=== PATIENT | female | born 1960 | race American Indian/Alaskan Native ===

== ENCOUNTER 2021-03-29 10:53 | Outpatient (CLI) | payer BC ==
--- NOTE | 2021-04-02 09:30 | Mammography Report ---
DIGITAL DIAGNOSTIC MAMMOGRAM WITH CAD, 03/29/2021 INDICATION: The patient reports generalized swelling of the left breast for 8 months. TECHNIQUE: Digital left mammographic imaging was performed. Magnification views were obtained. This examination was interpreted with the benefit of Computer-aided Detection analysis. COMPARISON: 07/26/2019, 06/21/2018 FINDINGS: Breast Density: The breasts are heterogeneously dense, which may obscure small masses. There has been interval development of a 1 cm cluster of coarse heterogeneous calcifications with a s lightly branching morphology at the immediate retroareolar position. There is no focal mammographic abnormality to account for the patient's report of left breast swellin g. IMPRESSION: Follow up recommendation: Biopsy BI-RADS Category 4: Suspicious for Malignancy. 1. New cluster of heterogeneous slightly branching calcifications in the immediate retroareolar posit ion. There is immediate location adjacent to the nipple would preclude percutaneous biopsy. Needle lo calization and surgical biopsy would likely be the best option. 2. No mammographic abnormality to account for the patient's report of left breast swelling. Therefore , clinical correlation is recommended. A "normal" or negative report should not discourage follow up or biopsy of a clinically significant f inding. A written summary of these findings will be mailed to the patient. The patient will be entered into a mammography reporting system which will generate a reminder letter for the patient's next appointmen t at the appropriate interval. According to the [employer], yearly mammograms are recommended starting at age 40 and continuing as long as a woman is in good health. Breast MRI is recommended for women with an tawanda roximately 20-25% or greater lifetime risk of breast cancer, including women with a strong family his tory of breast or ovarian cancer and women who have been treated for Hodgkin's disease. Signer Name: Crystal Abdul MD Signed: 04/02/2021 9:26 AM Workstation Name: [id number]
== END 2021-03-29 10:54 | disposition home or self-care (01) ==
LOC: SPVWC 10:53
PROVIDERS: ATTEND Surgery
DX: R92.0 Mammographic microcalcification found on diagnostic imaging of breast (principal)
CPT/HCPCS: 77065; G0279

== ENCOUNTER 2021-04-29 05:53 | Day surgery (SDC) | payer BC ==
[2021-04-23 11:07] LABS: Hemoglobin 14.1 gm/dl (10.1-14.3); Mean Corpuscular HGB Conc 34 % (30-34); Mean Corpuscular Volume 92 fl (79-97); Platelet Count 316 K/mm3 (140-440); Red Blood Count 4.57 M/mm3 (3.65-5.03); Red Cell Distribution Width 13.2 % (13.2-15.2)
[2021-04-29] MEDS ORDERED: ceFAZolin/STERILE WATER 2 GM/20 ML SYRINGE IV NR (06:00)
--- NOTE | 2021-04-29 06:55 | Anesthesia Consultation ---
Anesthesia Consult and Med Hx Date of service: 04/29/21 - Airway Anesthetic Teeth Evaluation: Good ROM Head & Neck: Adequate Mental/Hyoid Distance: Adequate Mallampati Class: Class II Intubation Access Assessment: Good - Pulmonary Exam CTA: Yes - Cardiac Exam Cardiac Exam: RRR - Pre-Operative Health Status ASA Pre-Surgery Classification: ASA2 Proposed Anesthetic Plan: General - Pulmonary Hx Smoking: No Hx Sleep Apnea: No - Cardiovascular System Hx Hypertension: Yes - Central Nervous System Hx Psychiatric Problems: Yes - Other Systems Hx Alcohol Use: Yes (OCCASIONALLY) Hx Substance Use: No Hx Cancer: No
--- NOTE | 2021-04-29 06:56 | Anesthesia Day of Surgery ---
Anesthesia Day of Surgery - Day of Surgery Patient Examined: Yes Patient H&P Reviewed: Yes Patient is NPO: Yes
[2021-04-29] MEDS ORDERED: SCOPOLAMINE TRANSDERMAL PATCH 72 HR TD NR (07:00)
[2021-04-29] MEDS ORDERED: LACTATED RINGERS 1,000 ML IV SCH (07:00)
[2021-04-29] MEDS ORDERED: MIDAZOLAM 2 MG/2 ML INJ IV NR (07:00)
[2021-04-29] MEDS ORDERED: BUPIVACAINE/PF (0.5%) 5 MG/1 ML 30 ML VIAL INFILTRATI ONE (07:21)
[2021-04-29] MEDS ORDERED: LIDOCAINE (1%) 10 MG/1 ML VIAL 20 ML MDV ONE ×2 (07:21→07:44)
[2021-04-29] MEDS ORDERED: ONDANSETRON 4 MG/2 ML INJ ONE (07:41)
[2021-04-29] MEDS ORDERED: fentaNYL 100 MCG/2 ML INJ ONE (07:41)
[2021-04-29] MEDS ORDERED: propofoL 200 MG/20 ML VIAL IV ONE (07:42)
[2021-04-29] MEDS ORDERED: HYDROmorphone 1 MG/1 ML INJ ONE (07:42)
[2021-04-29] MEDS ORDERED: ePHEDrine SULFATE 50 MG/1 ML INJ ONE (07:42)
[2021-04-29] MEDS ORDERED: LIDOCAINE MPF (2%) 20 MG/1 ML VIAL 5 ML ONE (08:00)
[2021-04-29] MEDS ORDERED: dexAMETHasone 20 MG/5 ML VIAL ONE (08:00)
[2021-04-29] MEDS ORDERED: HYDROmorphone 1 MG/1 ML INJ IV PRN ×2 (08:30)
[2021-04-29] MEDS ORDERED: ONDANSETRON 4 MG/2 ML INJ IV PRN (08:30)
--- NOTE | 2021-04-29 08:35 | Mammography Report ---
MAMMOGRAPHIC GUIDED LEFT BREAST NEEDLE LOCALIZATION, 04/29/2021 CLINICAL INFORMATION / INDICATION: LT BREAST CALCIFICATIONS. COMPARISON: 03/29/2021 mammogram PROCEDURE: Risks, benefits and indications to the procedure were discussed with the patient. The patient agreed to proceed with both verbal and written consent. A timeout procedure was performed with 2 patient gema ntifiers. The breast was prepped with betadine in the usual sterile fashion. Approximately 5 cc of Lidocaine 1% was used for local anesthesia. Under direct digital mammographic guidance, a localization wire was p laced in satisfactory position with distal tip traversing the targeted lesion. Post-biopsy mammogram confirms satisfactory positioning of the localization wire. The wire was secured to the skin with a s terile dressing. The patient tolerated procedure without difficulty. No complications were encountered. IMPRESSION: 1. Satisfactory mammographic guided wire localization of the left breast. Signer Name: Cash Singh Jr, MD Signed: 04/29/2021 8:30 AM Workstation Name: [id number]
[2021-04-29] MEDS ORDERED: WATER FOR IRRIG STERILE 1,500 ML BOTTLE IR ONE (09:21)
[2021-04-29] MEDS ORDERED: BUPIVACAINE/PF (0.25%) 2.5 MG/ML 30 ML VIAL INFILTRATI ONE (09:21)
[2021-04-29] MEDS ORDERED: LIDOCAINE (1%) 10 MG/1 ML VIAL 20 ML MDV INFILTRATI ONE (09:22)
[2021-04-29] MEDS ORDERED: BACITRACIN ZINC OINT 28.4 GM TP ONE ×2 (09:22→09:24)
--- NOTE | 2021-04-29 10:02 | Mammography Report ---
LEFT BREAST SPECIMEN RADIOGRAPH, 04/29/2021 INDICATION: Left breast calcifications/cancer. COMPARISON: Needle localization performed earlier today. FINDINGS: The previously localized target lesion is present in its entirety in the submitted specimen. The localization wire is present. IMPRESSION: 1. Radiographic evidence of satisfactory excision of the target lesion. Signer Name: Cash Singh Jr, MD Signed: 04/29/2021 9:58 AM Workstation Name: [id number]
--- NOTE | 2021-04-29 10:13 | Short Stay Summary ---
Short Stay Documentation Date of service: 04/29/21 - History H&P: obtained from office - Allergies and Medications Current Medications: Allergies shellfish derived Allergy (Verified 04/29/21 07:25) Swelling Home Medications Medication Instructions Recorded Confirmed Last Taken Type Amlodipine Bes/Olmesartan Med 1 each PO DAILY 04/17/21 04/17/21 Unknown History [Amlodipine-Olmesartan 10-40 mg] Aspirin [Adult Aspirin] 81 mg PO DAILY 04/17/21 04/17/21 Unknown History Biotin [Biotin 5,000 rapdis] 5,000 mcg PO DAILY 04/17/21 04/17/21 Unknown History Ergocalciferol(Vitamin D2)(Nf) 2,000 unit PO DAILY 04/17/21 04/17/21 Unknown History [Vitamin D (Nf)] Rosuvastatin (Nf) [Crestor] 5 mg PO QHS 04/17/21 04/17/21 Unknown History Ibuprofen [Motrin 800 MG tab] 800 mg PO Q8HR PRN #12 tablet 04/29/21 Unknown Rx Active Medications Cefazolin Sodium (Cefazolin/Sterile Water 2 Gm/20 Ml Syringe) 2 gm IV PREOP NR Stop: 04/29/21 23:59 Hydromorphone HCl (Hydromorphone 1 Mg/1 Ml Inj) 0.25 mg IV Q10MIN PRN PRN Reason: Pain, Moderate (4-6) Stop: 04/29/21 17:00 Hydromorphone HCl (Hydromorphone 1 Mg/1 Ml Inj) 0.5 mg IV Q10MIN PRN PRN Reason: Pain , Severe (7-10) Stop: 04/29/21 17:00 Lactated Ringer's (Lactated Ringers) 1,000 mls @ 100 mls/hr IV DIRECT KIRK Last Admin: 04/29/21 07:00 Dose: 100 mls/hr Documented by: Midazolam HCl (Midazolam 2 Mg/2 Ml Inj) 2 mg IV PREOP NR Stop: 04/29/21 23:59 Last Admin: 04/29/21 08:40 Dose: 2 mg Documented by: Ondansetron HCl (Ondansetron 4 Mg/2 Ml Inj) 4 mg IV ONCE PRN PRN Reason: Nausea And Vomiting Stop: 04/29/21 17:00 Scopolamine (Scopolamine Transdermal Patch 72 Hr) 1 each TD PREOP NR Stop: 04/29/21 23:45 Last Admin: 04/29/21 07:00 Dose: 1 each Documented by: - Brief post op/procedure progress note Date of procedure: 04/29/21 Pre-op diagnosis: Suspicious left retroareolar calcifications Post-op diagnosis: same Procedure: Left breast needle localization excisional biopsy Anesthesia: GETA Findings: Wire and calicifications present within radiograph specimen Surgeon: OMAIRA TERRY Estimated blood loss: minimal Pathology: list Specimen disposition: to lab Condition: stable - Disposition Condition at discharge: Good Disposition: DC-01 TO HOME OR SELFCARE Short Stay Discharge Plan Activity: other (no heavy lifting) Diet: regular Wound: keep clean and dry (may shower in 48 hours; no baths, pools or lakes; apply bacitracin twice daily) Follow up with: OMAIRA TERRY MD [Staff Physician] - 7 Days Prescriptions: Ibuprofen [Motrin 800 MG tab] 800 mg PO Q8HR PRN #12 tablet PRN Reason: Pain , Severe (7-10)
--- NOTE | 2021-04-29 10:19 | Operative Report ---
Operative Report Operative Report: Operative Report: April 29, 2021 Preoperative diagnosis: Left breast retroareolar microcalcifications of the upper outer quadrant Postoperative diagnosis: Same Procedure: Left breast needle localization excisional biopsy of microcalcifications of the upper outer quadrant Surgeon: Yari Garcia MD Anesthesia: General Findings: Left wire and microcalcifications present within radiograph specimen Complications: None EBL: Minimal (less than 25 cc) Disposition: PACU in good condition Indications for operative procedure: This is a 61 year old lady with recent abnormal left diagnostic mammogram with findings of suspicious microcalcifications of the retroareolar of the upper outer quadrant. Given microcalcifications close proximity to skin, percutaneous biopsy with sterotactic not able to be performed. Recommendations are to proceed with left breast excisional biopsy of microcalcifications to rule out malignancy. She wished to proceed with the above procedure. Procedure in detail: The patient was taken to radiology for wire placement for localization known area of concern. Patient was then taken to the operating room. Gen. anesthesia was administered. Left breast and axilla were prepped and draped in the normal sterile operative fashion. The wire was identified and adjacent to suspicious microcalcifications. Timeout was performed. Attention was then taken towards the left breast. A periareolar breast incision was made around the 12:00 position with a 15 blade knife and dissection taken down to subcutaneous tissues. First began raising of the superior flap with removal of the wire from the skin with dissection take down posteriorly past the wire, f ollowed by raising of the inferior flap, medial flap and lateral flap with all flaps taken down posteriorly past the wire. The breast area of concern was appropriately removed posteriorly with the aid of the Bovie cautery. The wire was not encountered. Specimen was marked and then sent to pathology and radiology; radiograph specimen with wires and suspicious microcalcifications present. Breast cavity was irrigated and hemostasis was obtained. The posterior deep breast tissues were approximated and closed using interrupted 3-0 Vicryl. The subcutaneous tissues were approximated and closed using interrupted 3-0 Vicryl followed by closing of the skin with a running 4-0 Monocryl and dermabond. The patient tolerated surgery very well and she was awaken from anesthesia without any complication and transported to PACU in good condition.
[2021-04-29 11:29] VITALS: BP 118/63
--- NOTE | 2021-04-29 15:11 | Post Anesthesia Evaluation ---
- Post Anesthesia Evaluation Patient Participated: Yes Airway Patent: Yes Stable Respiratory Function: Yes Nausea/Vomiting: No Temp > 96.8F: Yes Pain Manageable: Yes Adequeate Hydration: Yes Anesthesia Complications: No Block Receding Appropriately: Not Applicable Patient on Ventilator: No
== END 2021-04-29 11:18 | disposition home or self-care (01) ==
LOC: OR 05:53
PROVIDERS: ATTEND Surgery
DX: R92.8 Other abnormal and inconclusive findings on diagnostic imaging of breast (principal); R92.1 Mammographic calcification found on diagnostic imaging of breast; I10 Essential (primary) hypertension; E78.00 Pure hypercholesterolemia, unspecified; M19.90 Unspecified osteoarthritis, unspecified site; F41.9 Anxiety disorder, unspecified; Z90.710 Acquired absence of both cervix and uterus; Z98.890 Other specified postprocedural states; Z98.51 Tubal ligation status; Z91.013 Allergy to seafood; Z79.899 Other long term (current) drug therapy
CPT/HCPCS: 19125; 19281; 36415; 76098; 85027; 88307; 88341; 88342; A4648; J0690; J1100; J1170; J2250; J2405; J2704; J3010; J7120; U0003

== ENCOUNTER 2021-05-14 08:46 | Outpatient (CLI) | payer BC ==
--- NOTE | 2021-05-14 09:54 | Mammography Report ---
BILATERAL DIAGNOSTIC MAMMOGRAM INDICATION: Status post left breast lumpectomy, patient due for annual bilateral mammogram. COMPARISON: 04/29/2021, 03/29/2021, 08/05/2019, 06/21/2018. FINDINGS: The breasts are heterogeneously dense which decreases the sensitivity of mammography. Inter krzysztof postsurgical change in the left subareolar breast at the site of lumpectomy. No residual suspicio us calcifications are identified. This will serve as a new baseline appearance for the left breast. S table right upper outer breast glandular asymmetry. Long-term stability would support a benign etiolo gy. No suspicious mass, microcalcifications, or other abnormality is identified within either breast. CAD was utilized. IMPRESSION: No evidence of malignancy status post left breast lumpectomy. A routine screening mammogram in one ye ar is recommended. BI-RADS Category 2: Benign. Recommend routine screening mammography in one year A "normal" or negative report should not discourage follow up or biopsy of a clinically significant f inding. A written summary of these findings will be mailed to the patient. FURTHER INFORMATION: According to the [employer], yearly mammograms are recommend ed starting at age 40 and continuing as long as a woman is in good health. Breast MRI is recommended for women with an approximately 20-25% or greater lifetime risk of breast cancer, including women wi th a strong family history of breast or ovarian cancer and women who have been treated for Hodgkin's disease. Signer Name: Db Dias MD Signed: 05/14/2021 9:50 AM Workstation Name: [id number]
== END 2021-05-14 08:47 | disposition home or self-care (01) ==
LOC: SPVWC 08:46
PROVIDERS: ATTEND Surgery
DX: R92.8 Other abnormal and inconclusive findings on diagnostic imaging of breast (principal)
CPT/HCPCS: 77066

== ENCOUNTER 2021-05-23 06:04 | Day surgery (SDC) | payer BC ==
[~2021-05-23 06:04] MED LIST: ACETAMINOPHEN 500 MG TAB PO SCH; BACITRACIN ZINC OINT 28.4 GM TP ONE; BUPIVACAINE/PF (0.25%) 2.5 MG/ML 30 ML VIAL INFILTRATI ONE; GABAPENTIN 300 MG CAP PO NR; LACTATED RINGERS 1,000 ML IV SCH; LIDOCAINE (1%) 10 MG/1 ML VIAL 20 ML MDV INFILTRATI ONE; MIDAZOLAM 2 MG/2 ML INJ IV NR; WATER FOR IRRIG STERILE 1,500 ML BOTTLE IR ONE; ceFAZolin/STERILE WATER 2 GM/20 ML SYRINGE IV NR
[2021-05-23] MEDS ORDERED: BACTERIOSTATIC SODIUM CHLORIDE 0.9% 30 ML VIAL INFILTRATI ONE (06:47)
[2021-05-23] MEDS ORDERED: BUPIVACAINE/PF (0.25%) 2.5 MG/ML 30 ML VIAL INFILTRATI ONE ×2 (07:19→09:51)
[2021-05-23] MEDS ORDERED: LIDOCAINE (1%) 10 MG/1 ML VIAL 20 ML MDV ONE (07:19)
[2021-05-23] MEDS ORDERED: LIDOCAINE MPF (2%) 20 MG/1 ML VIAL 5 ML ONE (07:47)
[2021-05-23] MEDS ORDERED: fentaNYL 100 MCG/2 ML INJ ONE (07:47)
[2021-05-23] MEDS ORDERED: propofoL 200 MG/20 ML VIAL IV ONE (07:48)
--- NOTE | 2021-05-23 07:51 | Anesthesia Day of Surgery ---
Anesthesia Day of Surgery - Day of Surgery Patient Examined: Yes Patient H&P Reviewed: Yes Patient is NPO: Yes Lalito's Test: N/A
--- NOTE | 2021-05-23 07:51 | Anesthesia Consultation ---
Anesthesia Consult and Med Hx Date of service: 05/23/21 - Airway Anesthetic Teeth Evaluation: Good ROM Head & Neck: Adequate Mental/Hyoid Distance: Adequate Mallampati Class: Class II Intubation Access Assessment: Probably Good - Pulmonary Exam CTA: Yes - Cardiac Exam Cardiac Exam: RRR - Pre-Operative Health Status ASA Pre-Surgery Classification: ASA2 Proposed Anesthetic Plan: General - Pulmonary Hx Smoking: No Hx Sleep Apnea: No - Cardiovascular System Hx Hypertension: Yes (Took medication last night.) Hx Cardia Arrhythmia: No - Central Nervous System Hx Neuromuscular Disorder: No Hx Psychiatric Problems: No - Gastrointestinal Hx Gastroesophageal Reflux Disease: No - Endocrine Hx Renal Disease: No Hx Cirrhosis: No Hx Liver Disease: No - Hematic Hx Anemia: No - Other Systems Hx Alcohol Use: Yes (SOCIAL DRINKER) Hx Substance Use: No Hx Cancer: Yes - Additional Comments Anesthesia Medical History Comments: no gac, no fhac.
[2021-05-23] MEDS ORDERED: HYDROmorphone 1 MG/1 ML INJ IV PRN (08:24)
[2021-05-23] MEDS ORDERED: HYDROcodone/ACETAMINOPHEN 5-325 MG TAB PO PRN (08:24)
[2021-05-23] MEDS ORDERED: ONDANSETRON 4 MG/2 ML INJ IV PRN (08:24)
[2021-05-23] MEDS ORDERED: ePHEDrine SULFATE 50 MG/1 ML INJ ONE (09:07)
[2021-05-23] MEDS ORDERED: WATER FOR IRRIG STERILE 1,500 ML BOTTLE IR ONE (09:44)
[2021-05-23] MEDS ORDERED: BACITRACIN ZINC OINT 28.4 GM TP ONE ×2 (09:44→10:08)
[2021-05-23] MEDS ORDERED: ONDANSETRON 4 MG/2 ML INJ ONE (09:49)
[2021-05-23] MEDS ORDERED: LIDOCAINE (1%) 10 MG/1 ML VIAL 20 ML MDV INFILTRATI ONE (09:51)
[2021-05-23] MEDS ORDERED: dexAMETHasone 20 MG/5 ML VIAL ONE (09:59)
[2021-05-23] MEDS ORDERED: PHENYLEPHRINE/NS 1,000 MCG/10 ML SYRINGE (OR USE) IV ONE (10:00)
--- NOTE | 2021-05-23 10:27 | Short Stay Summary ---
Short Stay Documentation Date of service: 05/23/21 - History H&P: obtained from office - Allergies and Medications Current Medications: Allergies shellfish derived Allergy (Verified 05/17/21 12:41) Swelling Home Medications Medication Instructions Recorded Confirmed Last Taken Type Amlodipine Bes/Olmesartan Med 1 each PO DAILY 04/17/21 05/08/21 05/22/21 History [Amlodipine-Olmesartan 10-40 mg] Aspirin [Adult Aspirin] 81 mg PO DAILY 04/17/21 05/23/21 05/18/21 History Biotin [Biotin 5,000 rapdis] 5,000 mcg PO DAILY 04/17/21 05/08/21 05/22/21 History Rosuvastatin (Nf) [Crestor] 5 mg PO QHS 04/17/21 05/08/21 05/22/21 History Cholecalciferol Vit D3 [Vitamin D3 2,000 unit PO QDAY 05/08/21 05/23/21 05/22/21 History 1,000 UNIT TAB] Active Medications Acetaminophen (Acetaminophen 500 Mg Tab) 1,000 mg PO PREOP KIRK Stop: 05/23/21 23:00 Last Admin: 05/23/21 07:00 Dose: 1,000 mg Documented by: Hydrocodone Bitart/Acetaminophen (Hydrocodone/Acetaminophen 5-325 Mg Tab) 2 ea ch PO ONCE PRN PRN Reason: Pain, Moderate (4-6) Cefazolin Sodium (Cefazolin/Sterile Water 2 Gm/20 Ml Syringe) 2 gm IV PREOP NR Stop: 05/23/21 21:00 Gabapentin (Gabapentin 300 Mg Cap) 300 mg PO PREOP NR Stop: 05/23/21 20:00 Last Admin: 05/23/21 07:00 Dose: 300 mg Documented by: Hydromorphone HCl (Hydromorphone 1 Mg/1 Ml Inj) 0.5 mg IV Q10MIN PRN PRN Reason: Pain , Severe (7-10) Stop: 05/23/21 23:00 Lactated Ringer's (Lactated Ringers) 1,000 mls @ 100 mls/hr IV DIRECT KIRK Stop: 05/23/21 23:59 Last Admin: 05/23/21 07:00 Dose: 100 mls/hr Documented by: Midazolam HCl (Midazolam 2 Mg/2 Ml Inj) 2 mg IV PREOP NR Stop: 05/23/21 23:00 Last Admin: 05/23/21 08:00 Dose: 2 mg Documented by: Ondansetron HCl (Ondansetron 4 Mg/2 Ml Inj) 4 mg IV ONCE PRN PRN Reason: Nausea And Vomiting - Brief post op/procedure progress note Date of procedure: 05/23/21 Pre-op diagnosis: Left breast cancer with close surgical margins Post-op diagnosis: same Procedure: Left breast retroareolar DCIS with close surgical margins Anesthesia: GETA Findings: Margin revision Surgeon: OMAIRA TERRY Estimated blood loss: minimal Pathology: list Specimen disposition: to lab Condition: stable - Disposition Condition at discharge: Good Disposition: 01 HOME / SELF CARE / HOMELESS Short Stay Discharge Plan Activity: other (no heavy lifting) Diet: regular Wound: keep clean and dry (may shower in 48 hours; no baths, pools or lakes; apply bacitracin twice daily) Follow up with: OMAIRA TERRY MD [Staff Physician] - 7 Days
--- NOTE | 2021-05-23 10:38 | Operative Report ---
Operative Report Operative Report: Date of Service: May 23, 2021 Preoperative diagnosis: Left breast cancer of the retroareolar/upper outer quadrant with close surgical margin Postoperative diagnosis:Same Procedure: Left breast margin revision Surgeon: Yari Garcia MD Ancillary Specialist: Sixto Mitchell MD Anesthesia: General Findings: Lumpectomy/excisional biopsy breast margin revision Complications: None EBL: Minimal Disposition: PACU in good condition Indications for operative procedure: This is a 61 year old lady with newly d iagnosed Stage 0 left breast cancer of the retroareolar/upper outer quadrant, [id number] ER positive. She recently underwent left needle localization excisional biopsy of suspicious retroareolar microcalcifications with pathology findings of intermediate grade DCIS. Anterior margin 0.2 mm from DCIS, 1 mm from lateral margin and other margins greater than 5 mm from DCIS. Recommendations were to proceed with anterior, lateral, and posterior (given DCIS identified will take dissection down to pectoralis muscle) margin revision. Patient wished to proceed with the above procedure. Procedure in detail: The patient was taken to the operating room and was placed supine. General anesthesia was administered. The left breast was prepped and draped in the normal sterile operative fashion. Timeout was performed. Ultrasound used as well to identify the seroma cavity of surgical site. Skin incision was made through the prior breast incision with a 15 blade knife of 12:00 position periareolar incision. Subcutaneous tissues were opened with the aid of the Bovie cautery and knife. Seroma cavity was encountered and suctioned. Hemostasis was noted. Then proceeded with margin revision. The prior excisional biopsy/lumpectomy entire margins were revised en-bloc using the bovie cautery to include revision of the anterior margin that was sutured closed, posterior margin, superior margin, inferior margin, medial and lateral margins (entire lumpectomy site/cavity margins revised as one single specimen). Specimen was marked and sent to pathology. Hemostasis was obtained with the Bovie cautery. Breast cavity was anesthetized with 1% lidocaine mixed with quarter percent Marcaine. The deep breast tissues were approximated and closed using interrupted 3-0 Vicryl and skin brought together and closed using a running 4-0 Monocryl followed by dermabond. She tolerated surgery very well and was awaken from anesthesia without any complications and transported to PACU in good condition.
[2021-05-23 12:58] VITALS: BP 120/63
--- NOTE | 2021-05-23 13:11 | Post Anesthesia Evaluation ---
- Post Anesthesia Evaluation Patient Participated: Yes Airway Patent: Yes Stable Respiratory Function: Yes Nausea/Vomiting: No Temp > 96.8F: Yes Pain Manageable: Yes Adequeate Hydration: Yes Anesthesia Complications: No
== END 2021-05-23 06:05 | disposition home or self-care (01) ==
LOC: OR 06:04
PROVIDERS: ATTEND Surgery
DX: C50.012 Malignant neoplasm of nipple and areola, left female breast (principal); I10 Essential (primary) hypertension; E78.00 Pure hypercholesterolemia, unspecified; F41.9 Anxiety disorder, unspecified; M19.90 Unspecified osteoarthritis, unspecified site; Z79.82 Long term (current) use of aspirin; Z79.899 Other long term (current) drug therapy; Z98.890 Other specified postprocedural states
CPT/HCPCS: 19301; 88307; 88342; J0690; J1100; J2250; J2370; J2405; J2704; J3010; J7120; U0003